=== PATIENT | female | born 1995 | race African-American/Black ===

== ENCOUNTER 2017-07-08 22:31 | Emergency (ER) | payer MEDICAID ==
[~2017-07-08] VITALS: Ht 154.9 cm; Wt 61.2 kg
[2017-07-08 23:31] VITALS: BP 100/70
[2017-07-09 00:23] LABS: BILIRUBIN,URINE NEGATIVE (NEGATIVE); BLOOD, URINE 3+ Ery/uL (NEGATIVE); COLOR,URINE YELLOW (YELLOW); KETONES,URINE NEGATIVE (NEGATIVE); LEUKOCYTE ESTERASE ,URINE 3+ (NEGATIVE); NITRITE, URINE NEGATIVE (NEGATIVE); PH,URINE 7.5 (5.0-8.0); PROTEIN,URINE 2+ mg/dl (NEGATIVE); UGLUCOSE NEGATIVE (NEGATIVE)
[2017-07-09 00:35] LABS: APPEARANCE,URINE CLOUDY (CLEAR)
[2017-07-09 00:42] LABS: BACTERIA,URINE 2+ /HPF (None Seen); SQUAMOUS EPITHELIAL CELL,UR Moderate /HPF (None Seen); WBC,URINE 81-100 /HPF (0-3)
== END 2017-07-09 01:17 | disposition home or self-care (01) ==
LOC: ER 22:36
DX: N39.0 Urinary tract infection, site not specified (principal)
CPT/HCPCS: 81000-TC; 84703-TC; 87086-TC; 87186-TC; 87491; 87591; A4606; Z7610

== ENCOUNTER 2017-07-12 07:37 | Emergency (ER) | payer MEDICAID ==
[~2017-07-12] VITALS: Ht 154.9 cm; Wt 64.9 kg
[2017-07-12 07:40] VITALS: BP 130/67
== END 2017-07-12 07:55 | disposition home or self-care (01) ==
LOC: ER 07:38
DX: N39.0 Urinary tract infection, site not specified (principal)
CPT/HCPCS: 99283; A4606; Z7610